=== PATIENT | female | born 1990 | race Caucasian/White ===

== ENCOUNTER 2023-04-13 08:34 | Emergency (ER) | payer OTHER, SELFPAY ==
--- NOTE | ~2023-04-13 | US_ITS ---
EXAMINATION:US pelvic ovarian doppler, US pelvic and transvaginal CLINICAL INFORMATION: Reason for Exam rt pelvic pain, tx'd for swollen fall tube recen COMPARISON: No priors available. FINDINGS: UTERUS: The uterus is anteverted. Size: 8.1 x 4.4 x 5.1 cm. Uterine mass: There is no uterine mass. Cervix: Grossly unremarkable. Endometrium: No ultrasound evidence of endometrial lesion. endometrial thickness measures 1.2 cm ADNEXA: Free fluid in both adnexa. Right ovary: Right ovarian cyst 5.3 x 4.6 x 5 cm Left ovary: Normal in size. Doppler exam: Normal Doppler flow identified in both ovaries. FREE FLUID: Trace amount of free fluid. OTHER FINDINGS: None US/US pelvic and transvaginal IMPRESSION: - Right ovarian cyst 5.3 cm. Given its size Follow-up ultrasound in one year recommended. - Free fluid in both adnexa. - Small amount of free fluid in the adnexa bilaterally uncertain etiology.
--- NOTE | ~2023-04-13 | US_ITS ---
EXAMINATION:US pelvic ovarian doppler, US pelvic and transvaginal CLINICAL INFORMATION: Reason for Exam rt pelvic pain, tx'd for swollen fall tube recen COMPARISON: No priors available. FINDINGS: UTERUS: The uterus is anteverted. Size: 8.1 x 4.4 x 5.1 cm. Uterine mass: There is no uterine mass. Cervix: Grossly unremarkable. Endometrium: No ultrasound evidence of endometrial lesion. endometrial thickness measures 1.2 cm ADNEXA: Free fluid in both adnexa. Right ovary: Right ovarian cyst 5.3 x 4.6 x 5 cm Left ovary: Normal in size. Doppler exam: Normal Doppler flow identified in both ovaries. FREE FLUID: Trace amount of free fluid. OTHER FINDINGS: None US/US pelvic ovarian doppler IMPRESSION: - Right ovarian cyst 5.3 cm. Given its size Follow-up ultrasound in one year recommended. - Free fluid in both adnexa. - Small amount of free fluid in the adnexa bilaterally uncertain etiology.
[2023-04-13 09:02] VITALS: BP 141/86; PULSE 82; RESP 18; TEMP 36.8; O2SAT 100; BMI 33.7
[2023-04-13 09:12] VITALS: BP 119/77; PULSE 87; RESP 16; O2SAT 99
--- NOTE | 2023-04-13 09:14 | ED_ITS ---
HPI - Abdominal Pain General Chief Complaint: Abdominal Pain Stated Complaint: R side pain/ burning sensation Time Seen by Provider: 04/13/23 08:40 Source: patient Mode of arrival: wheelchair History of Present Illness HPI narrative: 32-year-old female with history of spina bifida presents with onset of right lower quadrant/pelvic pain that resumed yesterday and has worsened throughout the night and into the morning, denies any history of renal colic but does have associated nausea without vomiting, denies diarrhea, chills without noted fever and a history UTI/pyelonephritis, self caths, and recently treated at [facility] for a swollen right fallopian tube Related Data Previous Rx's Medication Instructions Recorded cefdinir 300 mg capsule 300 mg PO BID 7 days #14 caps 04/13/23 ketorolac 10 mg tablet 10 mg PO Q6H PRN pain 5 days #20 04/13/23 tabs Allergies Allergy/AdvReac Type Severity Reaction Status Date / Time doxycycline Allergy Nausea Verified 04/13/23 09:05 Review of Systems Review of Systems Pertinent positives and negatives as stated in HPI PMFSH Past Medical History Source: nursing notes reviewed Social History Social History Alcohol intake: current Alcohol intake frequency: holidays/special occasions only Smoked in Last 30 Days: No Use of substances other than those prescribed or required for medical reasons: No Advance Directives: No Advance Directives Information Provided: No Patient : No Physical Exam ED Vital Signs: Vital Signs - 24 hr 04/13/23 09:02 04/13/23 09:12 04/13/23 10:41 Temperature 98.3 F 98.4 F Pulse Rate 82 87 80 Respiratory Rate 18 16 16 Blood Pressure 141/86 H 119/77 117/75 Pulse Oximetry 100 99 99 Oxygen Delivery Method Room Air Room Air Room Air BMI result Body Mass Index 33.7 VITAL SIGNS: Reviewed. GENERAL: Well developed, well nourished, in no acute distress. HEAD: Normocephalic/atraumatic EYES: PERRLA, EOMI EARS: Ext canals without abnormality NOSE: Nares patent bilateral OROPHARYNX: no oral lesions noted, posterior pharynx clear NECK: Supple, no adenopathy LUNGS: Normal breath sounds. No adventitious sounds or accessory muscle use. SpO2<100> CARDIOVASCULAR: Regular rate and rhythm without noted murmurs ABDOMEN: Soft, tenderness to palpation in right lower quadrant/suprapubic when palpated over the left lower quadrant, pain increases across suprapubic and right lower quadrant when directly palpated, non-distended with bowel sounds. MUSCULOSKELETAL: No tenderness, deformities, or effusions noted on gross inspection. EXTREMITIES: No cyanosis, clubbing or edema. SKIN: Inspection of the skin reveals no rashes NEUROLOGIC: Alert and oriented x 4. Strength and sensation to light touch were grossly intact x 4. Medical Decision Making Medical Decision Making [facility] Narrative: 32-year-old female with history and clinical presentation, DDX: TOA, ectopic, ovarian torsion, pyelonephritis, UTI, renal colic, very low clinical suspicion for appendicitis. I reviewed all investigations in hematologic indices are negative to suggest acute systemic infection as there is no leukocytosis, there is a mild left shift and on review of urinalysis and in combination with distribution of pain findings are most consistent with a right-sided pyelonephritis. Ultrasound is showing good flow to both ovaries although there is fluid in bilateral adnexa of unclear etiology. Patient has recently been treated for a TOA, I did review all documentation from [facility] at which time a CT scan as well as ultrasound of the pelvic was completed and no identification of an appendicitis, ovarian t orsion and although ultrasound did not identify a the hydrosalpinx this was identified on the CT scan as well as some pelvic free fluid. At that time patient had a fever and a leukocytosis. Today there is no leukocytosis, patient is afebrile and therefore I do not suspect appendicitis and there is no further evidence to suggest a renal colic. Patient being treated with IV fluids, Toradol, IV antibiotics and informed of all findings. Chemistry indices negative for liver enzyme or electrolyte abnormalities and there is no ZARIA. My interpretation is that patient is having significant pain with the nausea and chills consistent with acute pyelonephritis. She is able to tolerate oral intake, received antibiotics here and will go home with 7 days of appropriate antibiotics to complete entire course. She you will also go home with instructions follow-up with the ultrasound findings of a 5.3 cm ovarian cyst. Differential Diagnosis Differential Diagnoses: The differential diagnosis associated with the presentation includes Please see the discussion above Admission/Observation Consideration of admission/observation: Escalation of care including admissio n/observation considered Please see the discussion above Lab Data 04/13/23 09:24 04/13/23 09:24 Labs: Lab Results 04/13/23 04/13/23 04/13/23 Range/Units 09:20 09:20 09:24 WBC 10.3 (4.8-10.8) X10*3/uL RBC 3.91 L (4.20-5.50) X10*6/uL Hgb 11.9 L (12.0-16.0) g/dl Hct 35.4 L (37.0-47.0) % MCV 90.5 (80.0-98.0) fL MCH 30.4 (27.0-33.0) pg MCHC 33.6 (31.0-35.0) g/dl RDW 12.7 (11.0-16.0) % Plt Count 295 (160-400) X10*3/uL MPV 8.9 L (9.4-12.3) fL Immature Gran % (Auto) 0.4 (0.0-0.4) % Neut % (Auto) 74.8 H (45-73) % Lymph % (Auto) 17.1 L (20-40) % [place] % (Auto) 6.9 (2-11) % Eos % (Auto) 0.5 (0-4) % Baso % (Auto) 0.3 (0-2) % Lymph # (Auto) 1.8 (1.2-4.9) X10*3/uL [place] # (Auto) 0.7 (0.1-1.2) X10*3/uL Eos # (Auto) 0.1 (0.0-0.4) X10*3/uL Baso # (Auto) 0.0 (0.0-0.2) X10*3/uL Abs Immat Gran (auto) 0.04 H (0.00-0.03) X10*3/uL Absolute Neuts (auto) 7.7 (2.0-8.3) x10*3/uL Absolute Nucleated RBC 0.000 (0.0-0.012) X10*3/uL Nucleated RBC % (auto) 0.0 (0.0-0.2) /100WBC Sodium (135-145) mmol/L Potassium (3.3-5.1) mmol/L Chloride (96-108) mmol/L Carbon Dioxide (22-29) mmol/L Anion Gap (12-20) BUN (9-16) mg/dL Creatinine (0.5-1.4) mg/dL Estim Creat Clear Calc Estimated GFR Random Glucose (60-115) mg/dL Calcium (8.4-10.2) mg/dL Total Bilirubin (0.0-1.0) mg/dL AST (5-31) U/L ALT (0-31) U/L Alkaline Phosphatase (39-117) U/L Total Protein (6.5-8.0) g/dL Albumin (3.5-5.0) g/dL Urine Color Yellow Urine Appearance Cloudy Urine pH 6.5 (5.0-9.0) Ur Specific [place] 1.020 (1.005-1.025) Urine Protein 300 (3+) H (Neg-Trace) mg/dL Urine Glucose (UA) Negative (Negative) mg/dL Urine Ketones Negative (Negative) mg/dL Urine Blood Small (1+) H (Negative) Urine Nitrite Positive H (Negative) Ur Leukocyte Esterase Large (3+) H (Negative) Urine RBC 3-5 H (0-2) /HPF Urine WBC >50 H (0-5) /HPF Ur Squamous Epith Cells 0-2 (0-2) /HPF Urine Bacteria 1+ (None Seen) Hyaline Casts 0-2 (0-2) /LPF Urine Test NEGATIVE (NEGATIVE) 04/13/23 Range/Units 09:24 WBC (4.8-10.8) X10*3/uL RBC (4.20-5.50) X10*6/uL Hgb (12.0-16.0) g/dl Hct (37.0-47.0) % MCV (80.0-98.0) fL MCH (27.0-33.0) pg MCHC (31.0-35.0) g/dl RDW (11.0-16.0) % Plt Count (160-400) X10*3/uL MPV (9.4-12.3) fL Immature Gran % (Auto) (0.0-0.4) % Neut % (Auto) (45-73) % Lymph % (Auto) (20-40) % [place] % (Auto) (2-11) % Eos % (Auto) (0-4) % Baso % (Auto) (0-2) % Lymph # (Auto) (1.2-4.9) X10*3/uL [place] # (Auto) (0.1-1.2) X10*3/uL Eos # (Auto) (0.0-0.4) X10*3/uL Baso # (Auto) (0.0-0.2) X10*3/uL Abs Immat Gran (auto) (0.00-0.03) X10*3/uL Absolute Neuts (auto) (2.0-8.3) x10*3/uL Absolute Nucleated RBC (0.0-0.012) X10*3/uL Nucleated RBC % (auto) (0.0-0.2) /100WBC Sodium 139 (135-145) mmol/L Potassium 4.2 (3.3-5.1) mmol/L Chloride 109 H (96-108) mmol/L Carbon Dioxide 24 (22-29) mmol/L Anion Gap 10 L (12-20) BUN 12 (9-16) mg/dL Creatinine 0.62 (0.5-1.4) mg/dL Estim Creat Clear Calc 129.4 Estimated GFR > 60 Random Glucose 97 (60-115) mg/dL Calcium 8.9 (8.4-10.2) mg/dL Total Bilirubin 0.3 (0.0-1.0) mg/dL AST 14 (5-31) U/L ALT 18 (0-31) U/L Alkaline Phosphatase 49 (39-117) U/L Total Protein 7.1 (6.5-8.0) g/dL Albumin 4.0 (3.5-5.0) g/dL Urine Color Urine Appearance Urine pH (5.0-9.0) Ur Specific [place] (1.005-1.025) Urine Protein (Neg-Trace) mg/dL Urine Glucose (UA) (Negative) mg/dL Urine Ketones (Negative) mg/dL Urine Blood (Negative) Urine Nitrite (Negative) Ur Leukocyte Esterase (Negative) Urine RBC (0-2) /HPF Urine WBC (0-5) /HPF Ur Squamous Epith Cells (0-2) /HPF Urine Bacteria (None Seen) Hyaline Casts (0-2) /LPF Urine Test (NEGATIVE) Discharge Plan Discharge Clinical Impression: Pyelonephritis, Cyst of right ovary Patient Disposition: Home, Self-Care Instructions: Ovarian Cyst (ED), Kidney Infection (ED) Additional Instructions: 1. Resume all home medications as prescribed. Increase the amount of water that you consume, recommend [id number] Tylenol for pain as well as the Toradol that has been prescribed to you. 2. Complete the entire course of antibiotics as prescribed. 3. You have been identified with a 5.3 right ovarian cyst which should receive follow-up ultrasound in 1 year. 4. In addition, you have been identified to have free fluid in both adnexa and I recommend that you follow-up with your floors buffer or primary care provider on Saturday morning. Return to the ER for any worsening symptoms. Prescriptions: New cefdinir 300 mg capsule 300 mg PO BID 7 Days Qty: 14 0RF ketorolac 10 mg tablet 10 mg PO Q6H PRN (Reason: pain) 5 Days Qty: 20 0RF Rx Instructions: Patient received Toradol in the emergency room.
--- NOTE | 2023-04-13 09:28 | PC.NURSE ---
pt a&ox3, vss, pt verbalizing 04/28 right abdominal pain that sometimes radiates towards her back. pt verbalizes that she was recently hospitalized at [facility] 04/01-04/03 and was on abx. pt states that pain in abdomen started as soon as she got off of the medication. pt states nausea & chills but denies v/d/fever. call lawton placed within reach.
[2023-04-13 09:34] LABS: MANUAL DIFF FLAG NO
[2023-04-13 09:39] LABS: Basophils Percent Auto 0.3 % (0-2); Eosinophils Absolute Auto 0.1 X10*3/uL (0.0-0.4); Eosinophils Percent Auto 0.5 % (0-4); Hematocrit 35.4 % (37.0-47.0); Hemoglobin 11.9 g/dl (12.0-16.0); Imm Gran Abs Auto 0.04 X10*3/uL (0.00-0.03); Imm Gran Pct Auto 0.4 % (0.0-0.4); Lymphocytes Absolute Auto 1.8 X10*3/uL (1.2-4.9); Lymphocytes Percent Auto 17.1 % (20-40); Mean Corpuscular HGB Conc 33.6 g/dl (31.0-35.0); Mean Corpuscular Hemoglobin 30.4 pg (27.0-33.0); Mean Corpuscular Volume 90.5 fL (80.0-98.0); Mean Platelet Volume 8.9 fL (9.4-12.3); Monocytes Absolute Auto 0.7 X10*3/uL (0.1-1.2); Monocytes Percent Auto 6.9 % (2-11); Neutrophils Absolute Auto 7.7 x10*3/uL (2.0-8.3); Neutrophils Percent Auto 74.8 % (45-73); Platelet Count 295 X10*3/uL (160-400); Red Blood Count 3.91 X10*6/uL (4.20-5.50); Red Cell Distribution Width 12.7 % (11.0-16.0); White Blood Count 10.3 X10*3/uL (4.8-10.8)
[2023-04-13 09:58] LABS: UPreg QC Valid YES; Urine Pregnancy NEGATIVE (NEGATIVE)
[2023-04-13 09:59] LABS: Alanine Aminotransferase 18 U/L (0-31); Alkaline Phosphatase 49 U/L (39-117); Anion Gap 10 (12-20); Aspartate Amino Transferase 14 U/L (5-31); Bilirubin Total 0.3 mg/dL (0.0-1.0); Blood Urea Nitrogen 12 mg/dL (9-16); Calcium 8.9 mg/dL (8.4-10.2); Carbon Dioxide 24 mmol/L (22-29); Chloride 109 mmol/L (96-108); Creatinine Clr Calc Pharmacy 129.4; Estimated Glomerular Filt Rate > 60; Glucose Random 97 mg/dL (60-115); Potassium 4.2 mmol/L (3.3-5.1); Sodium 139 mmol/L (135-145); Total Protein 7.1 g/dL (6.5-8.0)
[2023-04-13 10:09] LABS: Appearance Urine Cloudy; Color Urine Yellow; Glucose Urine UA Negative (Negative); Leukocyte Esterase Urine Large (3+) (Negative); Nitrite Urine Positive (Negative); PH 6.5 (5.0-9.0); UMIC TRIGGER UACC YES; Urine Blood Small (1+) (Negative); Urine Ketones Negative (Negative); Urine Protein 300 (3+) mg/dL (Neg-Trace)
[2023-04-13 10:12] LABS: Bacteria Urine 1+ (None Seen); Hyaline Casts Urine 0-2 /LPF (0-2); Squamous Epithelial Cell Urine 0-2 /HPF (0-2); UACC Culture Trigger YES; WBC Urine >50 /HPF (0-5)
[2023-04-13 10:41] VITALS: BP 117/75; PULSE 80; RESP 16; TEMP 36.9; O2SAT 99
[2023-04-13] MEDS: Ketorolac Tromethamine 30 MG/ML VIAL 15 MG IVPUSH (10:53)
[2023-04-13] MEDS: cefTRIAXone sodium 1 GM in 0.9 % Sodium Chloride 50 ML IV (10:53)
[2023-04-13] MEDS: 0.9 % Sodium Chloride 500 ML 999 ML IV (11:00)
--- NOTE | 2023-04-13 11:00 | PC.NURSE ---
vss. pt verbalizing 9/10 RL abdominal pain. 20g IV placed in the left AC w/o complications. medications and IVF hung and administered per provider order. IVF not scanning in MAR - documented. pt resting comfortably with the lights dimmed. will reassess pain shortly. call lawton placed within reach.
--- NOTE | 2023-04-13 11:18 | PC.NURSE ---
will discharge pt when abx and fluids are complted infused.
--- NOTE | 2023-04-13 11:37 | PC.NURSE ---
pt verbalizing pain decreased to a 4/10 post medication administration. will discharge shortly
--- NOTE | 2023-04-13 11:38 | PC.NURSE ---
pt requesting if there is medication that provider can prescribe to help w/ possible future yeast infections as pt always gets them when prescribed abx as well. will notify provider.
== END 2023-04-13 12:18 | disposition home or self-care (01) ==
PROVIDERS: Emergency Provider Student in an Organized Health Care Education/Training Program
DX: N12 Tubulo-interstitial nephritis, not specified as acute or chronic (principal); B96.20 Unspecified Escherichia coli [E. coli] as the cause of diseases classified elsewhere; N83.201 Unspecified ovarian cyst, right side
CPT/HCPCS: 36415; 76830; 76856; 80053; 81001; 81003; 81025; 85025; 87086; 87088; 87186; 93975; 96361; 96365; 96375; 99284; 99285; J0696; J1885

== ENCOUNTER 2023-11-28 16:46 | Emergency (ER) | payer OTHER, MEDICAID, SELFPAY ==
[2023-11-28 16:53] VITALS: BP 132/85; PULSE 112; RESP 18; TEMP 37.2; O2SAT 99; BMI 32.9
--- NOTE | 2023-11-28 16:53 | ED.FEMALEGU ---
HPI - Female Genitourinary General Chief complaint: Urogenital-Female Stated complaint: dx of uti t-1, symptoms are worse Time Seen by Provider: 11/28/23 17:03 Source: patient Mode of arrival: ambulatory Limitations: no limitations History of Present Illness HPI Narrative: 33 yo female with history of spina bifida, neurogenic bladder who straight cath's at home, history of UTIs (last in March 2023 was ESBL E. Coli) who presents to the ER for evaluation of ongoing UTI symptoms after she was started on Ciprofloxacin by her Urologist yesterday for +UTI. She has taken 3 doses but continues to have pelvic pain, back pain, chills. Her symptoms started last week. No vomiting or abdominal pain. No vaginal discharge or vaginal bleeding. MD elicited complaint: UTI , pelvic pain and back pain Pertinent past history: recurrent UTIs Onset (ago): day(s) Location of symptoms: pelvis Severity: severe Severity scale (1-10): 8 Quality of pain: stabbing and aching Consistency: constant Vaginal discharge: none Vaginal bleeding: none Urinary symptoms: Urgency and Foul Smelling Urine Relieving factors: none Treatment prior to arrival: none Related Data Previous Rx's ?Medication ?Instructions ?Recorded cefdinir 300 mg capsule 300 mg PO BID 7 days #14 caps 04/13/23 ketorolac 10 mg tablet 10 mg PO Q6H PRN pain 5 days #20 04/13/23 tabs sulfamethoxazole 800 1 tab PO BID #14 tabs 04/27/23 mg-trimethoprim 160 mg tablet (Bactrim DS) phenazopyridine 100 mg tablet 100 mg PO TID PRN bladder spasms 6 11/28/23 (Pyridium) doses #6 tabs sulfamethoxazole 800 1 tab PO BID 7 days #14 tabs 11/28/23 mg-trimethoprim 160 mg tablet (Bactrim DS) Allergies Allergy/AdvReac Type Severity Reaction Status Date / Time doxycycline Allergy Nausea Verified 11/28/23 16:54 Review of Systems Review of Systems: Yes all other systems are reviewed and are negative [facility] Social History Social History Alcohol intake: current Alcohol intake frequency: holidays/special occasions only Advance Directives: No Advance Directives Information Provided: No Physical Exam Vital Signs: Vital Signs: Last Vital Signs Temp 98.3 F 11/28/23 19:26 Pulse 86 11/28/23 19:26 Resp 18 11/28/23 19:26 BP 133/81 11/28/23 19:26 Pulse Ox 94 11/28/23 19:26 O2 Del Method Room Air 11/28/23 19:26 BMI result Body Mass Index 32.9 Appearance: Alert. Oriented X3. No acute distress. Head: normocephalic, atraumatic. Eyes: Pupils equal, round and reactive to light. ENT: Pharynx normal. Neck: Normal inspection. Neck supple. CVS: Tachycardic, regular rhythm. Pulses normal. Respiratory: No respiratory distress. Breath sounds normal. Abdomen: Soft with suprapubic tenderness. +BS x4 Skin: Skin warm and dry. Normal skin color. Normal skin turgor. No rashes. Extremities: No lower extremity edema. No joint swelling. Neuro/psych: Oriented X 3. In a wheelchair, can walk short distances. Normal speech and cognition. Course Course Course Narrative: This is a Rapid Medical Examination (RME) in triage, full HPI, ROS, assessment and plan per primary provider in the Main ED. 33 yo female with history of spina bifida, history of neurogenic bladder who self catheterizes at home, history of ESBL E. Coli UTI in the past presents to the ER for evaluation of pelvic pain, fever, heart racing. She saw her Urologist and was started on ciprofloxacin yesterday. She has taken 3 doses of the cipro with no improvement. Medications Administered Discontinued Medications Generic Name Dose Route Start Last Admin Trade Name Freq PRN Reason Stop Dose Admin Sodium Chloride 1,000 mls @ 999 mls/hr 11/28/23 17:00 11/28/23 17:15 Ns IVCONT 11/28/23 18:00 999 mls/hr .Q1H1M SHARDA Administration Ketorolac Tromethamine 15 mg 11/28/23 17:01 11/28/23 17:21 Ketorolac Tromethamine 15 Mg/Ml Vial IVPUSH 11/28/23 17:02 15 mg ONCE ONE Administration Ketorolac Tromethamine 15 mg 11/28/23 18:29 11/28/23 18:40 Ketorolac Tromethamine 15 Mg/Ml Vial IVPUSH 11/28/23 18:30 15 mg ONCE ONE Administration Ondansetron HCl 4 mg 11/28/23 17:01 11/28/23 17:22 Ondansetron Hcl 4 Mg/2 Ml Vial IVPUSH 11/28/23 17:02 4 mg ONCE ONE Administration Oxycodone HCl 5 mg 11/28/23 18:29 11/28/23 18:38 Oxycodone Hcl Immed Release 5 Mg Tablet PO 11/28/23 18:30 5 mg ONCE ONE Administration Phenazopyridine HCl 100 mg 11/28/23 16:57 11/28/23 17:22 Phenazopyridine Hcl 100 Mg Tablet PO 11/28/23 16:58 100 mg ONCE ONE Administration Phenazopyridine HCl 100 mg 11/28/23 18:29 11/28/23 18:42 Phenazopyridine Hcl 100 Mg Tablet PO 11/28/23 18:30 100 mg ONCE ONE Administration Trimethoprim/Sulfamethoxazole 1 tab 11/28/23 16:57 11/28/23 17:22 Sulfamethox/Trimeth 800/160 Tablet PO 11/28/23 16:58 1 tab ONCE ONE Administration Medical Decision Making Medical Decision Making MDM Narrative: 33 yo female with history of spina bifida, neurogenic bladder who straight cath's at home, history of UTIs (last in March 2023 was ESBL E. Coli) who presents to the ER for evaluation of ongoing UTI symptoms after she was started on Ciprofloxacin by her Urologist yesterday for +UTI. Tachycardic but afebrile in triage. She is uncomfortable and reporting pelvic pain. No vaginal bleeding or discharge. No CVA tenderness on exam. Labs showing no leukocytosis. Normal renal function. Given IVF, pyridium, zofran and toradol x2 for pain. Started bactrim for hx ESBL. UA+ for infection She is feeling better on re-evaluation. stable for discharge home with bactrim and pyridium she will f/u with her urologist and make them aware of her ESBL history return precautions discussed, stable for d/c home Differential Diagnosis Differential Diagnoses: The differential diagnosis associated with the presentation includes UTI, pyelonephritis, sepsis, PID, , ectopic , TOA, ovarian torsion Admission/Observation Consideration of admission/observation: Escalation of care including admission/observation considered improved w/ treatment, stable for discharge and outpatient management. Lab Data [facility] Lab Attestation statement: I reviewed the patient's lab results. no leukocytosis, normal renal function 11/28/23 17:14 11/28/23 17:14 Labs: Lab Results 11/28/23 11/28/23 Range/Units 17:14 18:47 WBC 5.2 (4.8-10.8) X10*3/uL RBC 4.09 L (4.20-5.50) X10*6/uL Hgb 12.4 (12.0-16.0) g/dl Hct 35.7 L (37.0-47.0) % MCV 87.3 (80.0-98.0) fL MCH 30.3 (27.0-33.0) pg MCHC 34.7 (31.0-35.0) g/dl RDW 12.3 (11.0-16.0) % Plt Count 277 (160-400) X10*3/uL MPV 8.9 L (9.4-12.3) fL Immature Gran % (Auto) 0.4 (0.0-0.4) % Neut % (Auto) 51.4 (45-73) % Lymph % (Auto) 35.4 (20-40) % [place] % (Auto) 12.2 H (2-11) % Eos % (Auto) 0.2 (0-4) % Baso % (Auto) 0.4 (0-2) % Lymph # (Auto) 1.8 (1.2-4.9) X10*3/uL [place] # (Auto) 0.6 (0.1-1.2) X10*3/uL Eos # (Auto) 0.0 (0.0-0.4) X10*3/uL Baso # (Auto) 0.0 (0.0-0.2) X10*3/uL Abs Immat Gran (auto) 0.02 (0.00-0.03) X10*3/uL Absolute Neuts (auto) 2.7 (2.0-8.3) x10*3/uL Absolute Nucleated RBC 0.000 (0.0-0.012) X10*3/uL Nucleated RBC % (auto) 0.0 (0.0-0.2) /100WBC Sodium 141 (135-145) mmol/L Potassium 3.6 (3.3-5.1) mmol/L Chloride 109 H (96-108) mmol/L Carbon Dioxide 25 (22-29) mmol/L Anion Gap 11 L (12-20) BUN 14 (9-16) mg/dL Creatinine 0.65 (0.5-1.4) mg/dL Estim Creat Clear Calc 120.6 Estimated GFR > 60 Random Glucose 100 (60-115) mg/dL Calcium 9.3 (8.4-10.2) mg/dL Magnesium 1.9 (1.6-2.6) mg/dL Urine Color Dark Yellow Urine Appearance Cloudy Urine pH 6.5 (5.0-9.0) Ur Specific [place] 1.020 (1.005-1.025) Urine Protein Negative (Neg-Trace) mg/dL Urine Glucose (UA) Negative (Negative) mg/dL Urine Ketones Negative (Negative) mg/dL Urine Blood Negative (Negative) Urine Nitrite Positive H (Negative) Ur Leukocyte Esterase Small (1+) H (Negative) Urine RBC 0-2 (0-2) /HPF Urine WBC 11-20 H (0-5) /HPF Ur Squamous Epith Cells 6-10 (0-2) /HPF Urine Bacteria None Seen (None Seen) Hyaline Casts 0-2 (0-2) /LPF Urine Test NEGATIVE (NEGATIVE) External Record Review External record reviewed: Outpatient record and Prior outpatient labs Tests considered The following testing was considered but not selected: Pelvic U/S considered Prescription Management I considered prescription management with: Pain Medication and Antibiotic Chronic Conditions Patient?s care impacted by: Other (spina bifida, neurogenic bladder) Critical Care Time Critical Care Time Critical Care Time: Yes Total Critical Care Time: 38 Attestation: I have personally provided critical care time exclusive of time spent on separately billable procedures. Time includes review of lab data, bedside re-evaluations and monitoring for potential decompensation. Intervention performed as documented. Discharge Plan Discharge Clinical Impression: Acute UTI Patient Disposition: Home, Self-Care Instructions: Urinary Tract Infection in Women (DC) Additional Instructions: Take the prescribed antibiotics as directed, complete the entire course and do not miss any doses - next dose is due tomorrow morning Drink plenty of fluids Recommend motrin and tylenol for pain and fevers Follow up with your Urologist Below is your urine culture from 03/2023 Organism 1 Escherichia coli Quant > 100,000 cfu/mL ESBL Note: NOTE: Extended-Spectrum Beta-Lactamase enzyme present E coli M.I.C. RX --------- --- Ampicillin >=32 R Ceftriaxone >=64 R Ertapenem <=0.12 S Gentamicin >=16 R Levofloxacin >=8 R Nitrofurantoin <=16 S Trimethoprim/Sulfamethoxazole <=20 S Prescriptions: New sulfamethoxazole-trimethoprim [Bactrim DS] 800-160 mg tablet 1 tab PO BID 7 Days Qty: 14 0RF phenazopyridine [Pyridium] 100 mg tablet 100 mg PO TID PRN (Reason: bladder spasms) Qty: 6 0RF No Action cefdinir 300 mg capsule 300 mg PO BID 7 Days Qty: 14 0RF ketorolac 10 mg tablet 10 mg PO Q6H PRN (Reason: pain) 5 Days Qty: 20 0RF Rx Instructions: Patient received Toradol in the emergency room. sulfamethoxazole-trimethoprim [Bactrim DS] 800-160 mg tablet 1 tab PO BID Qty: 14 0RF Stand Alone Forms: Work/School Release Interventions: ED Discharge Assessment Last Done: 11/28/23 19:26 Discharge Date/Time: 11/28/23 19:27 Print Language: Persian
[2023-11-28] MEDS: 0.9 % Sodium Chloride 1,000 ML 999 ML IVCONT (17:15)
[2023-11-28 17:17] LABS: MANUAL DIFF FLAG NO
[2023-11-28 17:20] LABS: Basophils Percent Auto 0.4 % (0-2); Eosinophils Percent Auto 0.2 % (0-4); Hematocrit 35.7 % (37.0-47.0); Hemoglobin 12.4 g/dl (12.0-16.0); Imm Gran Abs Auto 0.02 X10*3/uL (0.00-0.03); Imm Gran Pct Auto 0.4 % (0.0-0.4); Lymphocytes Absolute Auto 1.8 X10*3/uL (1.2-4.9); Lymphocytes Percent Auto 35.4 % (20-40); Mean Corpuscular HGB Conc 34.7 g/dl (31.0-35.0); Mean Corpuscular Hemoglobin 30.3 pg (27.0-33.0); Mean Corpuscular Volume 87.3 fL (80.0-98.0); Mean Platelet Volume 8.9 fL (9.4-12.3); Monocytes Absolute Auto 0.6 X10*3/uL (0.1-1.2); Monocytes Percent Auto 12.2 % (2-11); Neutrophils Absolute Auto 2.7 x10*3/uL (2.0-8.3); Neutrophils Percent Auto 51.4 % (45-73); Platelet Count 277 X10*3/uL (160-400); Red Blood Count 4.09 X10*6/uL (4.20-5.50); Red Cell Distribution Width 12.3 % (11.0-16.0); White Blood Count 5.2 X10*3/uL (4.8-10.8)
[2023-11-28] MEDS: Ketorolac Tromethamine 15 MG/ML VIAL IVPUSH ×2 (17:21→18:40)
[2023-11-28] MEDS: Sulfamethox/Trimeth 800/160 TABLET 1 TAB PO (17:22)
[2023-11-28] MEDS: ondansetron HCL 4 MG/2 ML VIAL IVPUSH (17:22)
[2023-11-28] MEDS: Phenazopyridine HCL 100 MG TABLET PO ×2 (17:22→18:42)
[2023-11-28 17:39] LABS: Anion Gap 11 (12-20); Blood Urea Nitrogen 14 mg/dL (9-16); Calcium 9.3 mg/dL (8.4-10.2); Carbon Dioxide 25 mmol/L (22-29); Chloride 109 mmol/L (96-108); Creatinine Clr Calc Pharmacy 120.6; Estimated Glomerular Filt Rate > 60; Glucose Random 100 mg/dL (60-115); Magnesium 1.9 mg/dL (1.6-2.6); Potassium 3.6 mmol/L (3.3-5.1); Sodium 141 mmol/L (135-145)
[2023-11-28] MEDS: oxyCODONE HCl Immed Release 5 MG TABLET PO (18:38)
[2023-11-28 18:54] LABS: Appearance Urine Cloudy; Color Urine Dark Yellow; Glucose Urine UA Negative (Negative); Leukocyte Esterase Urine Small (1+) (Negative); Nitrite Urine Positive (Negative); PH 6.5 (5.0-9.0); UMIC TRIGGER UACC YES; Urine Blood Negative (Negative); Urine Ketones Negative (Negative); Urine Protein Negative (Neg-Trace)
[2023-11-28 19:05] LABS: Bacteria Urine None Seen (None Seen); Hyaline Casts Urine 0-2 /LPF (0-2); UACC Culture Trigger YES
[2023-11-28 19:06] LABS: RBC Urine 0-2 /HPF (0-2)
[2023-11-28 19:09] VITALS: BP 127/84; PULSE 86; RESP 18; TEMP 36.7; O2SAT 100
[2023-11-28 19:26] VITALS: BP 133/81; PULSE 86; RESP 18; TEMP 36.8; O2SAT 94
[2023-11-28 19:33] LABS: UPreg QC Valid YES; Urine Pregnancy NEGATIVE (NEGATIVE)
== END 2023-11-28 19:27 | disposition home or self-care (01) ==
PROVIDERS: Physician Assistant; Emergency Provider Internal Medicine
DX: N39.0 Urinary tract infection, site not specified (principal); R39.15 Urgency of urination; R10.2 Pelvic and perineal pain; Z79.899 Other long term (current) drug therapy
CPT/HCPCS: 36415; 80048; 81001; 81025; 83735; 85025; 87086; 87088; 87186; 96374; 96375; 99284; J1885; J2405